=== PATIENT | female | born 1960 | race Caucasian/White ===

== ENCOUNTER → 2020-04-22 10:44 | Outpatient (CLI) | payer BC, SELFPAY ==
--- NOTE | ~2020-04-22 | DEXA_ITS ---
Bone Density Report Name: Mali Guerrero Age: 59 Sex: Female Ethnicity: White Date of : 1960 Indication: postmenopausal; screening for osteoporosis; hysterectomy; Referring Provider: Shaheen, Kristina Coleman Study: Bone densitometry was performed. Exam Date: April 22, 2020 Accession number: [id number] Bone Density: Region BMD T-score Z-score Classification AP Spine (L1-L4) 1.112 0.6 2.0 Normal Femoral Neck (Left) 0.634 -1.9 -0.6 Osteopenia Total Hip (Left) 0.781 -1.3 -0.3 Osteopenia Femoral Neck (Right) 0.605 -2.2 -0.9 Osteopenia Total Hip (Right) 0.773 -1.4 -0.4 Osteopenia Total Hip Mean 0.777 -1.4 -0.4 Osteopenia World Health Organization criteria for BMD impression classify patients as: Normal (T-score at or above -1.0), Osteopenia (T-score between -1.0 and -2.5), or Osteoporosis (T-score at or below -2.5). 10-year Fracture Risk(1): Major Osteoporotic Fracture 10% Hip Fracture 1.5% Reported Risk Factors: [place] (), Neck BMD=0.605, BMI=24.1 (1) FRAX(R) Version 3.08. Fracture probability calculated for an untreated patient. Fracture probability may be lower if the patient has received treatment. Clinical Information Provided by Patient: Has used the following medications: Calcium, calcium plus vit D, MTV Has the following medical conditions: Hysterectomy Patient maximum height was 66.75 Menopause Age: 39 No regular weight bearing exercise Drinks caffeinated beverages Onset of menses at age 15 Number of children 2 Impression: The patient has low bone mass, based on the Right Femoral Neck T-score. The patient has an estimated ten-year risk of hip fracture of 1.5% and an estimated ten-year risk of major fracture of 10%, based on the WHO FRAX algorithm. Discussion: BONE DENSITY IS LOW AT ONE OR MORE SKELETAL SITES. This patient's lowest T-score is low at one or more skeletal sites. It meets the World Health Organization's (WHO) criteria for ?low bone mass? (T-score between -1.0 and -2.5). The patient's 10-year risk of fracture as calculated by FRAX is less than the threshold where pharmacological therapy is recommended by the National Osteoporosis Foundation (NOF). However, all treatment decisions require clinical judgment and consideration of individual patient factors, including patient preferences, comorbidities, previous drug use, risk factors not captured in the FRAX model (e.g., frailty, falls, vitamin D deficiency, increased bone turnover, interval significant decline in bone density) and possible under or overestimation of fracture risk by FRAX. The patient should follow a healthful lifestyle (good nutrition with adequate calcium and vitamin D, and appropriate weight-bearing exercise). Follow-Up: Consider repeating this study in 2 to 3 years to reassess this patie
--- NOTE | ~2020-04-22 | MM_ITS ---
EXAMINATION: MM screening janeth BI w fabian HISTORY: Screening TECHNIQUE: Craniocaudal and mediolateral oblique 3-D tomosynthesis images were obtained and synthetic 2-D images were generated. CAD analysis was submitted and interpreted. COMPARISON: Comparison to multiple prior studies sequentially, with oldest reviewed study dated 10/2014. BREAST PARENCHYMAL COMPOSITION: The breasts are heterogeneously dense, which may obscure small masses . FINDINGS: There is no evidence of suspicious mass, calcification, or architectural distortion to sugg est malignancy in either breast. There has been no suspicious interval change. IMPRESSION: 1. No mammographic evidence of malignancy. 2. Recommend routine screening mammography in one year. BI-RADS Category 1: Negative Reviewed, dictated and finalized at location A. NTORY TRANSCRIBER
== END ==
PROVIDERS: Visit Provider Obstetrics & Gynecology
DX: Z12.31 Encounter for screening mammogram for malignant neoplasm of breast (principal); N95.1 Menopausal and female climacteric states; M85.852 Other specified disorders of bone density and structure, left thigh; M85.851 Other specified disorders of bone density and structure, right thigh
CPT/HCPCS: 77063; 77067; 77080

== ENCOUNTER → 2020-10-24 09:26 | Outpatient (CLI) | payer BC, SELFPAY ==
--- NOTE | ~2020-10-24 | US_ITS ---
EXAMINATION: US breast LT limited HISTORY: Pain in the upper outer quadrant of the left breast TECHNIQUE: Limited high-resolution ultrasound of the left breast is performed. FINDINGS: There is a 5 mm x 2 mm oval, circumscribed, parallel, hypoechoic mass with no posterior fea tures or internal vascularity at the 3:00 location 4 cm from the nipple in the area of the patient's left breast pain. IMPRESSION: Small mass in the upper outer quadrant of the left breast which could reflect complicated cyst. No de finite correlate identified for the patient's breast pain. Recommend continue clinical follow-up and targeted left breast ultrasound in six months. BI-RADS category 3, probably benign findings. Reviewed, dictated and finalized at location A. IMPRESSION: Small mass in the upper outer quadrant of the left breast which could reflect c omplicated cyst. No definite correlate identified for the patient's breast pain . Recommend continue clinical follow-up and targeted left breast ultrasound in six months. BI-RADS category 3, probably benign findings.
== END ==
PROVIDERS: PCP Nurse Practitioner Family; Visit Provider Obstetrics & Gynecology
DX: N64.4 Mastodynia (principal); R92.8 Other abnormal and inconclusive findings on diagnostic imaging of breast
CPT/HCPCS: 76642

== ENCOUNTER → 2021-05-06 09:53 | Outpatient (CLI) | payer BC, SELFPAY ==
--- NOTE | ~2021-05-06 | MMUS_ITS ---
EXAMINATION: MM diagnostic janeth BI w fabian, US breast LT limited HISTORY: Six-month follow-up for probably benign left breast mass TECHNIQUE: Craniocaudal, mediolateral, and mediolateral oblique 3-D tomosynthesis images of the tristen ts were performed and synthetic 2-D images were generated. CAD analysis was submitted and interpreted . High resolution limited left breast ultrasound was performed. COMPARISON: 10/24/2020, 04/22/2020, 03/03/2019, 02/27/2019 BREAST PARENCHYMAL COMPOSITION: There are scattered areas of fibroglandular density. FINDINGS: MAMMOGRAPHIC FINDINGS: There is no evidence of suspicious mass, calcification, or architectural distortion in either breast to suggest malignancy. There has been no suspicious interval change. ULTRASOUND: There is a stable 5 mm x 2 mm oval, circumscribed, parallel, hypoechoic mass with no posterior featur es or internal vascularity at the 3:00 location 4 cm from the nipple. IMPRESSION: 1. Stable, probably benign left breast mass and no mammographic evidence of malignancy. 2. Recommend 6 month follow-up targeted left breast ultrasound and screening mammography in one year. BI-RADS category 3, probably benign findings. Reviewed, dictated and finalized at location A. IMINER IMPRESSION: 1. Stable, probably benign left breast mass and no mammographic evidence of mal ignancy. 2. Recommend 6 month follow-up targeted left breast ultrasound and screening ma mmography in one year. BI-RADS category 3, probably benign findings.
== END ==
PROVIDERS: PCP Nurse Practitioner Family; Visit Provider Obstetrics & Gynecology
DX: N60.02 Solitary cyst of left breast (principal); R92.8 Other abnormal and inconclusive findings on diagnostic imaging of breast
CPT/HCPCS: 76642; 77062; 77066; G0279

== ENCOUNTER → 2021-11-11 09:56 | Outpatient (CLI) | payer BC, SELFPAY ==
--- NOTE | ~2021-11-11 | US_ITS ---
US breast LT limited 11/11/2021 10:28 Indication: Follow-up left breast mass Procedure: High-resolution Limited ultrasound of the left breast Comparison: 05/06/2021 Findings: At 3:00, 4 cm from the nipple, there is a stable 6 mm minimally complicated cyst. No suspic ious masses to suggest malignancy. Impression: 1: Stable benign-appearing minimally complicated left breast cysts at 3:00, 4 cm from the nipple. Routine yearly screening mammogram and regular clinical breast examination are recommended. BI-RADS CATEGORY 2 - BENIGN FINDINGS Reviewed, dictated and finalized at location A. Impression: 1: Stable benign-appearing minimally complicated left breast cysts at 3:00, 4 c m from the nipple. Routine yearly screening mammogram and regular clinical breast examination are recommended. BI-RADS CATEGORY 2 - BENIGN FINDINGS
== END ==
PROVIDERS: PCP Nurse Practitioner Family
DX: N60.02 Solitary cyst of left breast (principal)
CPT/HCPCS: 76642

== ENCOUNTER → 2022-06-26 13:57 | Outpatient (CLI) | payer BC, SELFPAY ==
--- NOTE | ~2022-06-26 | MM_ITS ---
EXAMINATION: MM screening janeth BI w fabian HISTORY: Screening mammogram TECHNIQUE: Craniocaudal and mediolateral oblique 3-D tomosynthesis images were obtained and synthetic 2-D images were generated. CAD analysis was submitted and interpreted. COMPARISON: 11/11/2021 Limited left breast ultrasound 05/06/2021 diagnostic bilateral mammogram and limited left breast ultrasound 10/24/2020 Limited left breast ultrasound 04/22/2020 bilateral screening mammogram 03/03/2019 diagnostic left mammogram 02/17/2019 bilateral screening mammogram BREAST PARENCHYMAL COMPOSITION: There are scattered areas of fibroglandular density. FINDINGS: Approximately 4 mm asymmetric opacity is noted posteriorly in the outer mid to upper left b reast. Diagnostic left mammogram and left breast ultrasound examination are recommended. Otherwise there is no evidence of suspicious mass, calcification, or architectural distortion to sugg est malignancy in either breast. There has been no other suspicious interval change. IMPRESSION: 1. 4 mm asymmetry in posterior mid to upper outer left breast 2. Diagnostic left mammogram and left breast ultrasound examination are recommended BI-RADS Category 0: Incomplete: Needs additional imaging evaluation. Reviewed, dictated and finalized at location A. IMPRESSION: 1. 4 mm asymmetry in posterior mid to upper outer left breast 2. Diagnostic left mammogram and left breast ultrasound examination are recomme nded BI-RADS Category 0: Incomplete: Needs additional imaging evaluation.
== END ==
PROVIDERS: PCP Obstetrics & Gynecology; Visit Provider Obstetrics & Gynecology
DX: Z12.31 Encounter for screening mammogram for malignant neoplasm of breast (principal); R92.8 Other abnormal and inconclusive findings on diagnostic imaging of breast
CPT/HCPCS: 77063; 77067

== ENCOUNTER → 2022-07-21 09:47 | Outpatient (CLI) | payer BC, SELFPAY ==
--- NOTE | ~2022-07-21 | MMUS_ITS ---
EXAMINATION: MM diagnostic janeth LT w fabian, US breast LT limited HISTORY: 4 mm asymmetry reported in posterior mid to upper outer left breast on 06/26/2022 screening m ammogram TECHNIQUE: Additional 3-D tomosynthesis images of the left breast were performed and synthetic 2-D im ages were generated. CAD analysis was submitted and interpreted. High resolution upper outer and lowe r-outer quadrant left breast ultrasound was performed. COMPARISON: None FINDINGS: MAMMOGRAPHIC FINDINGS: Mildly irregular approximately 2.9 x 5.7 mm mass is noted posteriorly in the mid to upper outer left breast. ULTRASOUND: 3:00 5 cm from nipple: Parallel hypoechoic lesion is noted in the left breast at 3:00 5 cm from the n ipple at approximately location and of similar configuration as the mammographic finding noted above. No suspicious shadowing or internal vascularity is noted. 5:00 1 cm from nipple: Parallel circumscribed oval hypoechoic 2.3 x 4 x 4.6 cm sonolucency consistent with small cyst IMPRESSION: 1. Probable benign findings 2. 6 month diagnostic left mammogram and left breast ultrasound follow-up are recommended BI-RADS category 3, probably benign findings. Reviewed, dictated and finalized at location A. IMPRESSION: 1. Probable benign findings 2. 6 month diagnostic left mammogram and left breast ultrasound follow-up are r ecommended BI-RADS category 3, probably benign findings.
== END ==
PROVIDERS: PCP Obstetrics & Gynecology; Visit Provider Obstetrics & Gynecology
DX: R92.8 Other abnormal and inconclusive findings on diagnostic imaging of breast (principal)
CPT/HCPCS: 76642; 77061; 77065; G0279

== ENCOUNTER → 2023-02-02 09:36 | Outpatient (CLI) | payer BC, SELFPAY ==
--- NOTE | ~2023-02-02 | MMUS_ITS ---
EXAMINATION: MM diagnostic janeth LT w fabian, US breast LT complete HISTORY: Six-month follow-up of probable benign findings reported on 07/21/2022 diagnostic left mammog [place] and limited left breast ultrasound TECHNIQUE: Additional 3-D tomosynthesis images of were performed and synthetic 2-D images were genera danny. CAD analysis was submitted and interpreted. High resolution complete left breast ultrasound exam ination including all 4 quadrants and subareolar area was performed. COMPARISON: July 21, 2022 diagnostic left mammogram and left breast ultrasound 06/26/2022 bilateral screening mammogram BREAST PARENCHYMAL COMPOSITION: There are scattered areas of fibroglandular density. FINDINGS: MAMMOGRAPHIC FINDINGS: No suspicious mass or architectural distortion, malignant calcification, skin thickening or retractio n or significant new or developing density is detected. ULTRASOUND: 5:00 1 cm from nipple: Parallel circumscribed hypoechoic 2.4 x 4.2 mm solid lesion without internal v ascularity or posterior shadowing, benign in appearance 6:00 1 cm from nipple: Circumscribed 2 mm sonolucency, likely a small cyst No suspicious mass or shadowing of the left breast or other significant finding is noted. IMPRESSION: 1. Benign; no mammographic evidence of malignancy 2. Routine annual mammographic screening is recommended BI-RADS Category 2: Benign finding(s). Reviewed, dictated and finalized at location A. IMPRESSION: 1. Benign; no mammographic evidence of malignancy 2. Routine annual mammographic screening is recommended BI-RADS Category 2: Benign finding(s).
== END ==
PROVIDERS: PCP Obstetrics & Gynecology; Visit Provider Obstetrics & Gynecology
DX: R92.8 Other abnormal and inconclusive findings on diagnostic imaging of breast (principal)
CPT/HCPCS: 76641; 77061; 77065; G0279

== ENCOUNTER 2024-01-01 09:41 | Emergency (ER) | payer BC, SELFPAY ==
--- NOTE | 2024-01-01 09:49 | ED.GENADULT ---
HPI - General Adult General Chief complaint: Urogenital-Female Stated complaint: uti symptoms Time Seen by Provider: 01/01/24 09:49 Source: patient Mode of arrival: ambulatory Limitations: no limitations History of Present Illness HPI narrative: 63-year-old female patient presents to the [facility] with complaints of urinary tract symptoms. Patient states symptoms started yesterday and her symptoms have been burning pain with urination, frequency, urgency, low back pain and strong odor to the urine. Patient denies fevers, body aches or chills. Denies any nausea, vomiting or diarrhea. Related Data Home Medications Medication Instructions Recorded Confirmed duloxetine 60 mg capsule,delayed 90 mg PO DAILY 01/01/24 01/01/24 release estradiol 10 mcg vaginal tablet See Rx Instructions .Route .COMPLEX 01/01/24 01/01/24 (Yuvafem) levothyroxine 112 mcg tablet 112 mcg PO DAILY 01/01/24 01/01/24 trazodone 100 mg tablet 100 mg PO PRN PRN Insomnia 01/01/24 01/01/24 vilazodone 40 mg tablet 40 mg PO DAILY 01/01/24 01/01/24 Allergies Allergy/AdvReac Type Severity Reaction Status Date / Time morphine AdvReac Intermediate Nausea and Verified 01/01/24 09:54 Vomiting Sulfa (Sulfonamide AdvReac Intermediate Weakness Verified 01/01/24 09:54 Antibiotics) Review of Systems Review of Systems: CONSTITUTIONAL: Denies fever, chills, or sweats. EYES: Denies visual changes, redness, or discharge. ENT: Denies rhinorrhea, congestion, sore throat, or otalgia. CARDIOVASCULAR: Denies chest pain, palpitations, or edema. RESPIRATORY: Denies cough or dyspnea. GASTROINTESTINAL: Denies abdominal pain, nausea, vomiting, or diarrhea. GENITOURINARY: Positive dysuria denies hematuria. SKIN: Denies rash or itching. MUSCULOSKELETAL: Denies back pain, joint pain, or myalgia. NEUROLOGIC: Denies headache, numbness, or weakness. PSYCHIATRIC: Denies anxiety or depression. [facility] Family History Family History Mother Family history of cataracts Sibling Malignant neoplasm of prostate Social History Social History Smoking status: Never smoker Alcohol intake: current Comments At the time of my signature I agree with nursing past medical history, surgical, social, and family history. There is no relevant family history pertinent to the presenting complaint. Exam Narrative: GENERAL: Well-appearing, well-nourished, and in no acute distress. HEAD: Normocephalic, atraumatic. EYES: PERRLA and EOMI. ENT: Nares clear, no rhinorrhea or epistaxis. Mucous membranes moist. NECK: Supple. No lymphadenopathy CHEST: Clear to auscultation. No respiratory distress. HEART: Regular rate and rhythm. No murmur heard. Normal peripheral pulses. ABDOMEN: Soft, nontender, nondistended, normal active bowel sounds. no CVA tenderness on percussion. EXTREMITIES: Normal range of motion. No edema. SKIN: Warm, dry, no rash. NEURO: No focal deficits. Alert and oriented x3. Course Course Level of Care: Express Care Visit Vital Signs Vital signs: Vital Signs Temperature 36.1 C L 01/01/24 09:51 Pulse Rate 85 01/01/24 09:51 Respiratory Rate 16 01/01/24 09:51 Blood Pressure 113/61 01/01/24 09:51 Pulse Oximetry 99 01/01/24 09:51 Oxygen Delivery Room Air 01/01/24 09:51 Temperature 36.1 C L 01/01/24 09:51 Pulse Rate 85 01/01/24 09:51 Respiratory Rate 16 01/01/24 09:51 Blood Pressure 113/61 01/01/24 09:51 Pulse Oximetry 99 01/01/24 09:51 Oxygen Delivery Room Air 01/01/24 09:51 Vital signs reviewed. Medical Decision Making MDM Narrative Medical decision making narrative: Discussed with patient that her urine dip does show signs of a urinary tract infection. Discussed with patient we will go ahead and treat her today with some oral antibiotics. Patient is requesting 7 days instead of 5 days becau
[2024-01-01 09:51] VITALS: BP 113/61; PULSE 85; RESP 16; TEMP 36.1; O2SAT 99
[2024-01-01 10:09] LABS: EDUAAPPEAR Clear; EDUABILI Negative (Negative); EDUABLOOD 1+ (Negative); EDUACOLOR1 Yellow; EDUAGLUCOSE Negative (Negative); EDUAKETONE Negative (Negative); EDUALEUKO 1+ (Negative); EDUANITRATE Positive (Negative); EDUAPROTEIN Negative (Negative); EDUAUROBILI 0.2
== END 2024-01-01 10:10 | disposition home or self-care (01) ==
PROVIDERS: Emergency Provider Nurse Practitioner Family; PCP Family Medicine
DX: N30.00 Acute cystitis without hematuria (principal); B96.20 Unspecified Escherichia coli [E. coli] as the cause of diseases classified elsewhere; M19.90 Unspecified osteoarthritis, unspecified site; E03.9 Hypothyroidism, unspecified; F41.9 Anxiety disorder, unspecified; F32.A Depression, unspecified; Z86.16 Personal history of COVID-19
CPT/HCPCS: 81003; 87077; 87086; 87088; 87186; 99213; G0463

== ENCOUNTER 2024-01-11 13:46 | Emergency (ER) | payer BC, SELFPAY ==
[2024-01-11 14:01] VITALS: BP 122/65; PULSE 78; RESP 16; TEMP 36.4; O2SAT 98
--- NOTE | 2024-01-11 14:16 | ED.FEMALEGU ---
HPI - Female Genitourinary General Chief complaint: Urogenital-Female Stated complaint: Bladder Infection Source: patient and RN notes reviewed Mode of arrival: ambulatory Limitations: no limitations History of Present Illness HPI Narrative: 63-year-old female presented for complaint of burning with urination, frequency and urgency along with mid abdominal pain and mid back pain for about 5 days. Patient was treated for UTI 2 weeks ago, stating she had 10 days worth of medicines. She felt better after 5 days so she stopped the antibiotic, then symptoms returned. she then completed the medicine and symptoms returned again. Denies hematuria, nausea, vomiting, constipation, fevers or chills. Related Data Home Medications Medication Instructions Recorded Confirmed duloxetine 60 mg capsule,delayed 90 mg PO DAILY 01/01/24 01/11/24 release estradiol 10 mcg vaginal tablet See Rx Instructions .Route .COMPLEX 01/01/24 01/11/24 (Yuvafem) levothyroxine 112 mcg tablet 112 mcg PO DAILY 01/01/24 01/11/24 trazodone 100 mg tablet 100 mg PO PRN PRN Insomnia 01/01/24 01/11/24 vilazodone 40 mg tablet 40 mg PO DAILY 01/01/24 01/11/24 Allergies Allergy/AdvReac Type Severity Reaction Status Date / Time morphine AdvReac Intermediate Nausea and Verified 01/01/24 09:54 Vomiting Sulfa (Sulfonamide AdvReac Intermediate Weakness Verified 01/01/24 09:54 Antibiotics) Review of Systems Review of Systems: CONSTITUTIONAL: Denies body aches, fever, chills, or sweats. CARDIOVASCULAR: Denies chest pain, palpitations, or edema. RESPIRATORY: Denies cough or dyspnea. GASTROINTESTINAL: Reports abdominal pain, Denies nausea, vomiting, or diarrhea. GENITOURINARY: Reports dysuria, frequency, urgency, denies hematuria, flank pain SKIN: Denies rash, itching, or wounds. MUSCULOSKELETAL: Reports back pain PMFSH Family History Family History Mother Family history of cataracts Sibling Malignant neoplasm of prostate Social History Social History Smoking status: Never smoker Alcohol intake: current Comments At time of signature, I have reviewed and agree with nursing past medical, surgical, social and family history unless otherwise noted. Please see nursing chart for further information. There is no relevant family history pertinent to the presenting complaint Exam Narrative: GENERAL: Well-appearing ENT: Mucous membranes pink and moist. CHEST: No respiratory distress. Clear to auscultation. HEART: Regular rate and rhythm. ABDOMEN: Soft, nontender, nondistended, normal active bowel sounds. No CVA tenderness SKIN: Warm, dry, no rash. NEURO: No focal deficits. Alert and oriented x3. Gait steady. PSYCH: Normal affect. Course Course Emergency Course: Patient is aware of diagnosis, understands and agrees to treatment plan. Anticipatory guidance given. Patient agrees to follow-up as directed and is aware of reasons to seek care at the emergency department. Portions of this record may have been created with voice recognition software Level of Care: Express Care Visit Vital Signs Vital signs: Vital Signs Temperature 97.6 F 01/11/24 14:01 Pulse Rate 78 01/11/24 14:01 Respiratory Rate 16 01/11/24 14:01 Blood Pressure 122/65 01/11/24 14:01 Pulse Oximetry 98 01/11/24 14:01 Oxygen Delivery Room Air 01/11/24 14:01 Temperature 97.6 F 01/11/24 14:01 Pulse Rate 78 01/11/24 14:01 Respiratory Rate 16 01/11/24 14:01 Blood Pressure 122/65 01/11/24 14:01 Pulse Oximetry 98 01/11/24 14:01 Oxygen Delivery Room Air 01/11/24 14:01 Reviewed MDM - Female Genitourinary MDM Narrative Medical decision making narrative: Discussed physical exam findings and urine results. Will change to Augmentin based on previous culture. Advised supportive measures and signs/symptoms to g
[2024-01-11 14:18] LABS: EDUAAPPEAR Cloudy; EDUABILI Negative (Negative); EDUABLOOD 2+ (Negative); EDUACOLOR1 Yellow; EDUAGLUCOSE Negative (Negative); EDUAKETONE Negative (Negative); EDUALEUKO 3+ (Negative); EDUANITRATE Negative (Negative); EDUAPROTEIN Negative (Negative); EDUAUROBILI 0.2
== END 2024-01-11 14:32 | disposition home or self-care (01) ==
PROVIDERS: Emergency Provider Nurse Practitioner Family; PCP Family Medicine
DX: N39.0 Urinary tract infection, site not specified (principal)
CPT/HCPCS: 81003; 87086; 87088; 99213; G0463

== ENCOUNTER 2024-01-24 09:19 | Emergency (ER) | payer BC, SELFPAY ==
[2024-01-24 09:33] VITALS: BP 118/55; PULSE 82; RESP 16; TEMP 36.2; O2SAT 98
[2024-01-24 09:53] LABS: EDUAAPPEAR Cloudy; EDUABILI Negative (Negative); EDUABLOOD 2+ (Negative); EDUACOLOR1 Yellow; EDUAGLUCOSE Negative (Negative); EDUAKETONE Negative (Negative); EDUALEUKO 2+ (Negative); EDUANITRATE Negative (Negative); EDUAPH 5.5; EDUAPROTEIN Negative (Negative); EDUASPGRAVITY 1.015; EDUAUROBILI 0.2
--- NOTE | 2024-01-24 10:21 | ED.ABDPAIN ---
HPI - Abdominal Pain General Chief Complaint: Urogenital-Female Stated Complaint: Bladder Infection Time Seen by Provider: 01/24/24 10:21 Source: patient, RN notes reviewed and old records reviewed Mode of arrival: ambulatory Limitations: no limitations History of Present Illness HPI narrative: Patient presents with complaints of urinary frequency, dysuria, low back pain. She reports that she has been getting very frequent UTIs. States that she has recently been on Augmentin and Macrobid, symptoms returned a couple of days after finishing medication. She does report that she has not followed up with her primary care provider. She is encouraged once again to do so. She denies any fever, chills, sweats. Denies any rafal hematuria. denies any injury or trauma Related Data Home Medications Medication Instructions Recorded Confirmed duloxetine 60 mg capsule,delayed 90 mg PO DAILY 01/01/24 01/24/24 release estradiol 10 mcg vaginal tablet See Rx Instructions .Route .COMPLEX 01/01/24 01/24/24 (Yuvafem) levothyroxine 112 mcg tablet 112 mcg PO DAILY 01/01/24 01/24/24 trazodone 100 mg tablet 100 mg PO PRN PRN Insomnia 01/01/24 01/24/24 vilazodone 40 mg tablet 40 mg PO DAILY 01/01/24 01/24/24 Allergies Allergy/AdvReac Type Severity Reaction Status Date / Time morphine AdvReac Intermediate Nausea and Verified 01/24/24 09:49 Vomiting Sulfa (Sulfonamide AdvReac Intermediate Weakness Verified 01/24/24 09:49 Antibiotics) Review of Systems Review of Systems: All systems reviewed & are unremarkable except as noted in HPI and below Constitutional: Constitutional: Reports as per HPI, Reports no additional constitutional complaints and Denies fever(s) ENT: Reports system reviewed and no additional complaints, except as documented Cardiovascular: Cardiovascular: Reports no additional cardiovascular complaints Respiratory: Respiratory: Reports no additional respiratory complaints Gastrointestinal: Gastrointestinal: Reports no additional gastrointestinal complaints Genitourinary: Genitourinary: Reports as per HPI, Reports dysuria, Reports flank pain, Reports urinary hesitancy and Reports urinary urgency PMFSH Family History Family History Mother Family history of cataracts Sibling Malignant neoplasm of prostate Social History Social History (Reviewed 01/24/24 @ 10:35 by DAISY Matthew Smoking status: Never smoker Alcohol intake: current Comments At the time of my signature, I reviewed and agree with the nursing past medical, surgical, social, and family history. There is no relevant family history pertinent to the patient complaint. Exam Const: General: cooperative, no acute distress, alert and awake Orientation/consciousness: oriented to person, oriented to place and oriented to time HENMT: Head: normal to inspection Mouth: Yes moist mucous membranes Resp: Effort & Inspection: normal respiratory effort and able to speak in complete sentences Auscultation: clear to auscultation bilaterally, no crackles, no rales, no rhonchi and no wheezes Cardio: Palpation: normal PMI Rate: regular rate Rhythm: regular rhythm Heart sounds: S1 normal heart sound present and S2 normal heart sound present : General: Yes bladder normal to palpation and Yes no CVA tenderness Neuro: General: oriented to person, oriented to place and oriented to time Cranial nerves: Yes CN's II-XII intact bilaterally Psych: Appearance: grossly normal Thought process: Normal thought process present Insight: Good insight present (Psych) Judgement: Good judgement present (Psych) Course Course Level of Care: Express Care Visit Vital Signs Vital signs: Vital Signs Temperature 97.2 F L 01/24/24 09:33 Pulse Rate 82 01/24/24 09:33 Respiratory Rate 16 01/24/24 09:33 Blood Pressure 118/55 L 01/24/24 09:33 Pulse Oximetry 98 01/24/24 09:33 Oxygen Deliv
== END 2024-01-24 10:40 | disposition home or self-care (01) ==
PROVIDERS: Emergency Provider Nurse Practitioner Family; PCP Family Medicine
DX: N39.0 Urinary tract infection, site not specified (principal); B96.20 Unspecified Escherichia coli [E. coli] as the cause of diseases classified elsewhere; M19.90 Unspecified osteoarthritis, unspecified site; E03.9 Hypothyroidism, unspecified; F41.9 Anxiety disorder, unspecified; F32.A Depression, unspecified; Z86.16 Personal history of COVID-19
CPT/HCPCS: 81003; 87077; 87086; 87186; 99213; G0463

== ENCOUNTER 2024-10-20 14:12 | Outpatient (CLI) | payer MEDICARE, BC, SELFPAY ==
--- NOTE | ~2024-10-20 | DEXA_ITS ---
Bone Density Report Name: JAYE RUBIO Age: 64 Sex: Female Ethnicity: White Date of : 1960 Indication: osteopenia; height loss; hysterectomy; Referring Provider: ROBERTO, RAFA Coleman Study: Bone densitometry was performed. Exam Date: October 20, 2024 Accession number: [id number] Bone Density: Region BMD T-score Z-score Classification AP Spine(L1-L4) 1.158 1.0 2.8 Normal Femoral Neck (Left) 0.586 -2.4 -0.9 Osteopenia Total Hip (Left) 0.788 -1.3 0.0 Osteopenia Femoral Neck (Right) 0.585 -2.4 -0.9 Osteopenia Total Hip (Right) 0.742 -1.6 -0.4 Osteopenia Total Hip Mean 0.765 -1.5 -0.2 Osteopenia World Health Organization criteria for BMD impression classify patients as: Normal (T-score at or above -1.0), Osteopenia (T-score between -1.0 and -2.5), or Osteoporosis (T-score at or below -2.5). 10-year Fracture Risk(1): Major Osteoporotic Fracture 12% Hip Fracture 2.3% Reported Risk Factors: [place] (), Neck BMD=0.586, BMI=24.1 (1) FRAX(R) Version 3.08. Fracture probability calculated for an untreated patient. Fracture probability may be lower if the patient has received treatment. Previous Exams: Region Exam Age BMD T-score BMD Change BMD Change Date g/cm2 vs Baseline vs Previous AP Spine (L1-L4) 10/20/2024 64 1.158 1.0 0.047 (4.2%)* 0.047 (4.2%)* 04/22/2020 59 1.112 0.6 Total Hip(Left) 10/20/2024 64 0.788 -1.3 0.007 (0.8%) 0.007 (0.8%) 04/22/2020 59 0.781 -1.3 Total Hip(Right) 10/20/2024 64 0.742 -1.6 -0.032 (-4.1%) -0.032 (-4.1%) 04/22/2020 59 0.773 -1.4 *Denotes significance at 95% confidence level, LSC for AP Spine = 0.022 g/cm2, LSC for Total Hip = 0.027 g/cm2 Clinical Information Provided by Patient: Has used the following medications: Calcium Has the following medical conditions: Hysterectomy Patient maximum height was 67 Menopause Age: 39 Drinks caffeinated beverages Onset of menses at age 13 Number of children 2 Impression: The patient has low bone mass, based on the Left Femoral Neck T-score. The patient has an estimated ten-year risk of hip fracture of 2.3% and an estimated ten-year risk of major fracture of 12%, based on the WHO FRAX algorithm. The BMD for the Total Hip(Right) decreased, changing by -4.1% since the last DXA exam. Discussion: BONE DENSITY IS LOW AT ONE OR MORE SKELETAL SITES. This patient's lowest T-score is low at one or more skeletal sites. It meets the World Health Organization's (WHO) criteria for ?low bone mass? (T-score between -1.0 and -2.5). The patient's 10-year risk of fracture as calculated by FRAX is less than the threshold where pharmacological therapy is recommended by the National Osteoporosis Foundation (NOF). However, all treatment decisions require clinical judgment and consideration of individual patient factors, including patient preferences, comorbidities, previous drug use, risk factors not captured in the FRAX model (e.g., frailty, falls, vitamin D deficiency, increased bone turnover, interval significant decline in bone density) and possible under or overestimation of fracture risk by FRAX. The patient should follow a healthful lifestyle (good nutrition with adequate calcium and vitamin D, and appropriate weight-bearing exercise). Follow-Up: Consider repeating this study in 2 years to reassess this patient's status, or sooner if there is some new clinical indication. Reported by: MELISA on 10/20/2024 2:54:00 PM. Reviewed, dictated and finalized at location A.
--- OUTSIDE RECORDS SUMMARY | 2024-10-20 14:17 | XMS_ITS | Encounter Summary ---
Author Organization [facility] Address [facility] [place] [place] [address] Care Team Providers Care Value Engineer Name Role Phone Marianne Rios MD Primary Care Provider [phone] [facility] [place] Primary Care Provider + None, Provider Primary Care Provider Danielle Blas MD Primary Care Provider [phone] Encounter Details Date Type Department Care Team (Late st Contact Info) Description 05/18/2017 Hosp Visit [facility] Outpatient Therapy [place] [id number] Juani Kerns, PT [place], [place] [id number] Social History Tobacco Use Types Packs/Day Years Used Date Smoking Tobacco: Never Assessed Comments Unknown Sex and Gender Information Value Date Recorded Sex Assigned at Female 09/19/2024 3:14 PM CDT Legal Sex Female 6:08 PM CDT Gender Identity Female 09/19/2024 3:14 PM CDT Sexual Orientation Not on file documented as of this encounter Progress Notes * Juani Kerns, PT - 05/18/2017 11:29 AM CST Mali Guerrero 1960 Patient called and cancelled today's appointment secondary to feeling very sore after MD internal exam. Juani Kerns PT, WCS 05/18/17 11:29 AM LE GRINDER FEEDER documented in this encounter Plan of Treatment Upcoming Encounters Date Type Department Care Team (Late st Contact Info) Description 11/20/2024 10:00 AM CDT Office Visit [facility] Family & Internal Medicine [facility] [address] [place] [phone] [place] [address] [facility]. [address] [place] [id number] documented as of this encounter Visit Diagnoses Not on filedocumented in this encounter Additional Health Concerns Infection Onset Date Last Indicated Resolved Time COVID-19 Rule Out 05/08/2022 05/08/2022 05/08/2022 9:53 AM CHICLE GRINDER FEEDER documented as of this encounter Care Teams Value Engineer Relationship Specialty Start Date End Date Marianne Rios MD [address], [place] [id number] PCP - General 06/19/10 04/17/21 Alyssa Loyola, [facility] [place] [address] [place] [address] PCP - General NURSE PRACTITIONER 04/18/21 05/25/22 None, MD Wild PCP - General UNKNOWN PHYSICIAN SPECIALTY 05/26/22 07/02/22 [place] [address] [facility] [address] [place] [id number] PCP - General FAMILY PRACTICE 07/03/22 documented as of this encounter
--- OUTSIDE RECORDS SUMMARY | 2024-10-20 14:17 | XMS_ITS | Encounter Summary ---
Author Organization [facility] [employer] [facility] Address [address] [place] [address] Phone Care Team Providers Care Personal Lines Advisor Name Role Phone Unknown, Vladimirnfelvia Primary Care Provider Unavail able Alyssa Loyola LONG DISTANCE OPERATOR Primary Care Provider + Unknown, Notinfile Primary Care Provider Unavail able Alyssa Loyola LONG DISTANCE OPERATOR Primary Care Provider + Unknown, Vladimirnfile Primary Care Provider Unavail able Alyssa Loyola LONG DISTANCE OPERATOR Primary Care Provider + Neha Frank DPT Unavailab le Jesse Black MD Unavailable [phone] Encounter Details Date Type Department Care Team (Latest Contact Info) Description 04/21/2017 Orders Only [facility] CONVERSION Scanning, Provider Social History Tobacco Use Types Packs/Day Years Used Date Smoking Tobacco: Never Comments Unknown Sex and Gender Information Value Date Recorded Sex Assigned at Not on file Legal Sex Female 7:36 AM ACCOUNTING MACHINE OPERATOR Gender Identity Not on file Sexual Orientation Not on file documented as of this encounter Plan of Treatment Not on file documented as of this encounter Procedures Procedure Name Priority Date/Time Associated Diagnosis Comments OBSTETRIC/GYNECOLOGY ULTRASONOGRAPHY REPORT 04/21/2017 12:53 PM ACCOUNTING MACHINE OPERATOR documented in this encounter Results * OBSTETRIC/GYNECOLOGY ULTRASONOGRAPHY REPORT (04/21/2017 12:53 PM ACCOUNTING MACHINE OPERATOR) Anatomical Region Laterality Modality Ultrasound us Provider Scanning IMG OB US PROCEDURES Final Res ult documented in this encounter Visit Diagnoses Not on filedocumented in this encounter Care Teams Personal Lines Advisor Relationship Specialty Start Date End Date Unknown, Notinfile PCP - General 04/21/17 05/07/17 Alyssa Loyola NP PCP - General 05/08/17 08/15/17 Unknown, Notinfile PCP - General 08/16/17 08/16/17 Alyssa Loyola NP PCP - General 08/17/17 08/18/17 Unknown, Notinfile PCP - General 08/19/17 09/12/17 Alyssa Loyola NP PCP - General Nurse Practitioner 09/13/17 Neha Frank DPT Physical Therapist Physical Therapy 09/13/17 Jesse Black MD [address] [place] [address] Consulting Physician Obstetrics and Gynecology 09/23/17 documented as of this encounter
--- OUTSIDE RECORDS SUMMARY | 2024-10-20 14:17 | XMS_ITS | Clinical Summary ---
Author Organization [facility] Address [address] [place] [address] Care Team Providers Care Reconstructive Dentist Name Role Phone Danielle Mtz MD Primary Care Provider [phone] Allergies Active Allergy Reactions Criticality Noted Date Comments Sulfa Antibiotics Rash Low 10/15/2015 HOT FLASHES AND WEAK LEG AND TURNED RED Medications vilazodone 40 MG tablet Take 1 tablet (40 mg total) by mouth daily. Active estradiol (ESTRACE) 0.5 MG tablet estradiol 0.5 mg tablet Active DULoxetine (CYMBALTA) 30 MG capsule Take 1 capsule (30 mg total) by mouth daily. Active DULoxetine (CYMBALTA) 60 MG capsule Take 1 capsule (60 mg total) by mouth daily. Active traZODone (DESYREL) 100 MG tablet TAKE 1 TABLET BY MOUTH IN THE EVENING NEEDED FOR INSOMNIA Active valACYclovir (VALTREX) 500 MG tabletIndications :HSV (herpes simplex virus) anogenital infection Take 1 tablet (500 mg total) by mouth 2 (two) times daily. for 5 days 30 tablet 08/09/19 24 Active vitamin D3 (CHOLECALCIFEROL) 1.25 mg capsuleIndication s:Vitamin D deficiency Take 1 capsule (50,000 Units total) by mouth once a week. 8 capsule 06/27/19 25 Active methenamine (HIPREX) 1 g tablet Take 1 tablet (1 g total) by mouth 2 (two) times daily with meals. 05/31/19 25 Active YUVAFEM 10 MCG vaginal tablet INSERT 1 TABLET VAGINALLY THREE TIMES A WEEK 07/27/19 25 Active levothyroxine (SYNTHROID) 112 MCG tabletIndications :Acquired hypothyroidism TAKE 1 TABLET BY MOUTH IN THE MORNING 90 tablet 09/28/19 25 Active atorvastatin (LIPITOR) 20 MG tabletIndications :Mixed hyperlipidemia TAKE 1 TABLET BY MOUTH NIGHTLY AT BEDTIME 30 tablet 10/17/19 25 Active atorvastatin (LIPITOR) 20 MG tabletIndications :Mixed hyperlipidemia Take 1 tablet (20 mg total) by mouth nightly at bedtime. 30 tablet 3 06/27/19 25 025 Discontinued levothyroxine (SYNTHROID) 112 MCG tabletIndications :Acquired hypothyroidism TAKE 1 TABLET BY MOUTH IN THE MORNING 90 tablet 06/28/19 25 025 Discontinued azithromycin (ZITHROMAX Z-NASH) 250 MG tabletIndications :Acute upper respiratory infection, unspecified Take 2 tablets by mouth on day one then 1 daily for four days. 6 tablet 09/20/19 25 025 predniSONE (DELTASONE) 20 MG tabletIndications :Acute upper respiratory infection, unspecified Take 1 tablet (20 mg total) by mouth daily for 5 days. With meal 5 tablet 09/20/19 25 025 Active Problems Patient Care Coordination No te Formatting of this note migh t be different from the original. PHYSICAL THERAPY PRECAUTIONS: implanted device (brain stimulator) Problem Noted Date Diagnosed Date Mild sleep apnea 08/09/2023 Age-related osteoporosis wit hout current pathological fracture 08/09/2023 Spinal stenosis of lumbar re gion without neurogenic claudication 07/19/2022 Acquired hypothyroidism 07/19/2022 Chronic anemia 07/19/2022 Irritable bowel syndrome with constipation 07/06 Encounters Date Type Department Care Team Description 09/19/2024 3:20 PM CDT Office Visit [facility] Family & Internal Medicine - [place] [id number] [place] [phone] Amisha Corbin MD Sore Throat (Acute x 1 month sore throat and persistent cough dry no other s/s also has had totally 2 or 3 months but cough ain't went away) 09/19/2024 Travel from Last 3 Months Immunizations Immunization Administration Dates Next Due FLUAD (IIV, Trivalent, 0.5 M L Pre-filled Syringe) 12/21/2016 Influenza (Generic) 01/28/2024, 7,01/02/2016,2014,01/10/2014,01/04/2013 Influenza Adult (Generic) 02/01/2023,11/2021,02/14/2021,2019,01/04/2019,01/23/2018,12/13/2017,0 01/05/2016 PFIZER COVID-19 (ORIGINAL FORMULATION, PURPLE CAP) mRNA, LNP-S, PF, 30 MCG/0.3 ML DOSE 02/27/2021,07/08/2020,06/17/2020 Shingrix 03/12/2022,11/13/2021 Tdap (Generic) 01/27/2018,01/23/2018,04/12/2010 Family History Medical History Relation Comments Asthma Daughter Diabetes Mother Relation Status Comments Daughter Alive Father Alive Mother Alive Social History Tobacco Use Types Packs/Day Years Used Date Smoking Tobacco: Never Smokeless Tobacco: Never Tobacco Cessation:Counseling Given: No Alcohol Use Standard Drinks/Week Comments Never 0 (1 standard drink = 0.6 oz pur e alcohol) PHQ-2 Answer Date Recorded Patient Health Questionnaire-2 Score 0 09/19/2024 Comments No Sex and Gender Information Value Date Recorded Sex Assigned at Female 09/19/2024 3:14 PM CDT Legal Sex Female 6:08 PM CDT Gender Identity Female 09/19/2024 3:14 PM CDT Sexual Orientation Not on file Last Filed Vital Signs Vital Sign Reading Time Taken Comments Blood Pressure 124/72 09/19/2024 3:13 PM CDT Pulse 80 09/19/2024 3:13 PM CDT Temperature 36.1 C (97 F) 09/19/2024 3:13 PM CDT Respiratory Rate 18 09/19/2024 3:13 PM CDT Oxygen Saturation 98% 09/19/2024 3:13 PM CDT Inhaled Oxygen Concentration - - Weight 72 kg (158 lb 12.8 oz) 09/19/2024 3:13 PM CDT Height 167.6 cm (5' 6) 09/19/2024 3:13 PM CDT Body Mass Index 25.63 09/19/2024 3:13 PM CDT Plan of Treatment Upcoming Encounters Date Type Department Care Team (Late st Contact Info) Description 11/20/2024 10:00 AM CDT Office Visit [facility] Family & Internal Medicine [facility] [address] [place] [address] [place] [address] [facility]. [address] [place] [address] Health Maintenance Due Date Last Done Comments Colorectal Cancer Screening Colonoscopy (10 Years) 1960 Hepatitis C 09/11/1977 Pneumococcal Vaccine: 50+ Years (1 of 2 - PCV) 09/11/1978 RSV Immunization or 60+ Years (1 - Risk 60-74 years 1-dose series) 2019 COVID-19 Vaccine (4 - 2023-2 5 season) 2023 02/27/2021, 07/08/2020, 06/17/2020 Dexa Scan (General) 09/11/2024 DTaP, Tdap and Td Vaccines ( 4 - Td or Tdap) 01/28/2028 01/27/2018, 01/23/2018, 04/12/2010 Mammogram Screening 09/07/2028 Postpone d from 1999 (Awaiting Documentation) Zoster Vaccines Completed 03/12/2022, 11/13/2021 PHQ-2 (Physician [place]) Completed 09/19/2024 Meningococcal B Vaccine Aged Out No l onger eligible based on patient's age to complete this topic Meningococcal Vaccine Aged Out No rey lizz eligible based on patient's age to complete this topic RSV Immunizations Under 20 Months Aged Out No longer eligible b ased on patient's age to complete this topic Insurance [facility] MEDICARE Care Teams Reconstructive Dentist Relationship Specialty [place] [address] [place] [address] PCP - General FAMILY PRACTICE 07/03/22
--- OUTSIDE RECORDS SUMMARY | 2024-10-20 14:17 | XMS_ITS | Encounter Summary ---
Author Organization [facility] Address [address] [place] [address] Care Team Providers Care Retail Receiving Clerk Name Role Phone Marianne Rios MD Primary Care Provider [phone] Alyssa Loyola [facility] Primary Care Provider + None, Provider Primary Care Provider Danielle Blas MD Primary Care Provider [phone] Encounter Details Date Type Department Care Team (Late st Contact Info) Description 06/18/2017 Hosp Visit [facility] Outpatient Therapy [place], [place] [id number] Juani Kerns, [place] [address] Social History Tobacco Use Types Packs/Day Years Used Date Smoking Tobacco: Never Assessed Comments Unknown Sex and Gender Information Value Date Recorded Sex Assigned at Female 09/19/2024 3:14 PM CDT Legal Sex Female 6:08 PM CDT Gender Identity Female 09/19/2024 3:14 PM CDT Sexual Orientation Not on file documented as of this encounter Progress Notes * Juani Kerns, PT - 06/18/2017 8:37 AM CST aMli Guerrero 1960 Patient called and cancelled today's appointment secondary to saw MD re lesion; awaiting culture results however MD suspects Herpes. Patient still feeling ill with achiness and malaise. Juani Kerns, PT, WCS 06/18/17 8:37 AM ITY HEAD documented in this encounter Plan of Treatment Upcoming Encounters Date Type Department Care Team (Late st Contact Info) Description 11/20/2024 10:00 AM CDT Office Visit [facility] Family & Internal Medicine - [place] [address] [place] [address] [place] [address] [facility]. [address] [place] [phone] documented as of this encounter Visit Diagnoses Not on filedocumented in this encounter Additional Health Concerns Infection Onset Date Last Indicated Resolved Time COVID-19 Rule Out 05/08/2022 05/08/2022 05/08/2022 9:53 AM QUALITY HEAD documented as of this encounter Care Teams Retail Receiving Clerk Relationship Specialty Start Date End Date Marianne Rios MD [address], [place] [address] PCP - General 06/19/10 04/17/21 Alyssa Loyola, [facility] [address] [place] [phone] PCP - General NURSE PRACTITIONER 04/18/21 05/25/22 None, Provider, PCP - General UNKNOWN PHYSICIAN SPECIALTY 05/26/22 07/02/22 [place] [address] [place], [place] [id number] PCP - General FAMILY PRACTICE 07/03/22 documented as of this encounter
--- OUTSIDE RECORDS SUMMARY | 2024-10-20 14:17 | XMS_ITS | Referral Summary ---
Author Organization [facility] Address [address] [place] [address] Care Team Providers Care Earring Maker Name Role Phone Nir Alyssa Judith TOBACCO STRIPPER HAND Primary Care Provider + Neha Frank DPT Unavailab le Jesse Black MD Unavailable [phone] Allergies Active Allergy Reactions Criticality Noted Date Comments Other Other (See comments) Low 10/24/2010 OTHER Sulfa (Sulfonamide Antibiotics) Rash Medium 10/15/2015 HOT FLASHES AND WEAK LEG AND TURNED RED Medications DULoxetine DR (CYMBALTA) 60 mg capsule daily. Active levothyroxine (SYNTHROID, LEVOTHROID) 112 mcg tablet 08/16/2017 Active traZODone (DESYREL) 100 mg tablet TAKE 1 TABLET AT BEDTIME. Active vilazodone (VIIBRYD) 40 mg tabletIndication s:major depressive disorder take 1 tablet daily Active clonazePAM (KlonoPIN) 0.5 mg tablet 1 12/23/2017 Active estradiol (VAGIFEM) 10 mcg tablet Insert 1 tablet (10 mcg total) into the vagina 2 (two) times a week 8 tablet 12/22/[address] (CYMBALTA) 30 mg capsule 05/01/2020 Active omega 3-can-edc-fish oil 1,000 mg (250 mg-750 mg)/5 mL liquid 1 tablet 10/07/2014 Act rashad vitamin O18-cghrg acid 0.5-1 mg tablet 1 tablet 10/07/2014 Act rashad cholecalciferol (VITAMIN D-3) 400 unit capsule 1 tablet 10/07/2014 Ac tive buPROPion XL (WELLBUTRIN XL) 150 mg 24 hr tablet Take 150 mg by mouth every morning 03/12/2021 Active ketorolac (TORADOL) 10 mg tablet TAKE 1 TABLET TWICE A DAY BY MOUTH NEEDED. 03/27/2021 Active methocarbamoL (ROBAXIN) 750 mg tablet Take by mouth 3 (three) times a day as needed 03/27/2021 Active tolterodine LA (DETROL LA) 4 mg 24 hr capsule 1 capsule 01/29/2018 Activ e clonazePAM (KlonoPIN) 1 mg tablet 1 BY MOUTH EVERY DAY NEEDED ANXIETY ORAL 04/09/2021 Active multivitamin-Ca- iron-minerals tablet 10/07/2014 Active doxycycline 100 mg tablet Take 100 mg by mouth 2 (two) times a day 06/14/2021 Active HYDROcodone-acet aminophen (NORCO) 5-325 mg per tablet 04/23/2021 Active promethazine-DM (PROMETHAZINE-DM ) 1.25-3 mg/mL syrup 5 mL 10/30/2021 Active nirmatrelvir 300 mg-ritonavir 100 mg (Paxlovid, EUA,) tablets,dose pack tablets in a dose pack (EUA) 2 tablets 10/30/2021 Active dicyclomine (BENTYL) 20 mg tablet Take 20 mg by mouth 4 (four) times a day as needed 10/25/2021 Active methenamine (HIPREX) 1 gram tabletIndication s:UTI prophylaxis Take 1 tablet (1 g total) by mouth 2 (two) times a day with meals 60 tablet 3 03/13/2024 Active Active Problems Problem Noted Date Diagnosed Date Neck pain of over 3 months duration 06/19/2021 Low back pain, non-specific 06/19/2021 Pelvic floor dysfunction in female 05/06/2020 Assessment & Plan (11/05/2021 4:54 PM CDT): -On examination, we elicited Moderate pain to palpation of the pelvic floor muscles. -We discussed the role that her pelvic floor muscle dysfunction is likely playing in her urinary symptoms, pelvic floor symptoms and bowel symptoms. -Management options for levator ani/obturator pain/spasm were discussed including pelvic floor physical therapy and vaginal icing. -A prescription for PFPT was given as well as vaginal icing supplies. She will have at least a couple visits with [facility] and then possibly transfer PFPT closer to home. Recurrent urinary tract infection 09/13/2017 Assessment & Plan (11/05/2021 5:15 PM CDT): -She was instructed to call our office with signs or symptoms of an UTI. A urine specimen will be sent to assess for an UTI. Empiric treatment will be started if indicated based on symptoms. -She will continue the following UTI prevention strategies including use of vaginal estrogen, D-mannose, voiding after intercourse, scheduled voiding every 2-3 hours. -She will resume Ellura for UTI prevention. -cathed urine sent today for UTI symptoms, she will start the Macrobid BID she has at home pending final culture. Red flag symptoms reviewed and advised patient to proceed to ED should these occur Vaginal atrophy 09/13/2017 Assessment & Plan (11/05/2021 5:14 PM CDT): -continue twice weekly VET (prescribed by local PALEOLOGY PROFESSOR) Bilateral hip pain 04/21/2017 Arthralgia of hip 04/21/2017 Bilateral myofascial pain 04/21/2017 Myofascial pain 04/21/2017 Female pelvic pain 04/21/2017 Pain in female pelvis 04/21/2017 Microscopic hematuria 04/21/2017 Anxiety disorder 05/17/2012 Recurrent major depressive disorder 07/21/2011 Resolved Problems Problem Noted Date Diagnosed Date Resolved Date Pelvic mass in female 04/21/20172020 Immunizations Immunization Administration Dates Next Due Influenza Virus Vaccine Trivalent Mdv 12/21/2016 Influenza, Quadrivalent, Spl it, Intramuscular 12/29/2019,01/04/2019,12/13/2017,01/04 Influenza, Quadrivalent, Spl it, Preservative Free, Intramuscular 12/29/2019,01/04/2019,01/24/2018,01/23 Influenza, Trivalent, Adjuva nted, Intramuscular 12/21/2016 Influenza, Trivalent, Cell Culture-based MDCK, Preservative Free, Antibiotic Free, Intramuscular 02/14/2021 Influenza, Trivalent, IM (MDV) 01/25/2015,2013,01/04/2013 Influenza, Trivalent, Preser vative Free, Intramuscular 01/02/2016 Pfizer SARS-CoV-2 Monovalent Vaccination (12+ Yrs) PURPLE 02/27/2021,07/08/2020,06/17/2020 Tdap 01/27/2018, 8,01/23/2018,04/12 Social History Tobacco Use Types Packs/Day Years Used Date Smoking Tobacco: Never Smokeless Tobacco: Never Tobacco Cessation:Counseling Given: Not Answered Alcohol Use Standard Drinks/Week Comments No 0 (1 standard drink = 0.6 oz pur e alcohol) AUDIT-C Answer Date Recorded Q1: How often do you have a drink containing alc ohol? Never 06/19/2021 Average Number of Drinks Not on file 022 Q3: How often do you have si x or more drinks on one occasion? Never 06/19/2021 Comments No Sex and Gender Information Value Date Recorded Sex Assigned at Not on file Legal Sex Female 7:36 AM PATTERN MECHANIC Gender Identity Not on file Sexual Orientation Not on file Occupation Industry Job Start Date Job End Date Retired Not on file Not on file Not on file Last Filed Vital Signs Vital Sign Reading Time Taken Comments Blood Pressure 112/67 03/13/2024 8:42 AM PATTERN MECHANIC Pulse 97 06/19/2021 11:19 AM PATTERN MECHANIC Temperature 36.5 C (97.7 F) 06/19/2020 12:50 PM PATTERN MECHANIC Respiratory Rate - - Oxygen Saturation 99% 01/18/2017 1:46 PM CDT Inhaled Oxygen Concentration - - Weight 71.2 kg (157 lb) 03/13/2024 8:42 AM PATTERN MECHANIC Height 167.6 cm (5' 6) 03/13/2024 8:42 AM PATTERN MECHANIC Body Mass Index 25.34 03/13/2024 8:42 AM PATTERN MECHANIC Plan of Treatment Not on file Procedures Procedure Name Priority Date/Time Associated Diagnosis Comments CT VIRTUAL COLONOSCOPY DIAGNOSTIC WO CONTRAST Schedule Routine, Read Routine (OP Routine) 10/09/2019 10:06 AM CDT Redundant colon from Last 3 Months or Most Recently Relevant to Health Maintenance Results * CT Colonoscopy Diagnostic WO Contrast (10/09/2019 10:06 AM CDT) Anatomical Region Laterality Modality Body N/A Computed Tomogra phy 10/09/2019 10:3 1 AM CDT Impressions 10/09/2019 10:31 AM CDT C1: Normal colon or benign lesion, continue routine screening. E1: Normal exam or anatomic variant Electronically signed by: Ezequiel Rogers M.D. Narrative 10/09/2019 10:31 AM CDT EXAMINATION: CT colonography without intravenous contrast HISTORY: 59-year-old female with redundant colon presents for colon screening TECHNIQUE: Transaxial computed tomographic images through the abdomen and pelvis were obtained without intravenous contrast after insufflation of the colon with CO2 through a rectal catheter. Images were obtained in the supine and right lateral decubitus positions. COMPARISON: None FINDINGS: The following findings are reported according to the CT Colonography Reporting and Data System (C-RADS) from Radiology 2005; 236:3-9. Colonic preparation and distention: adequate. All six segments of the colon are adequately distended on both supine and right lateral decubitus views. Colonic findings: Colon is well distended. No polyps greater than 5 mm are detected. Extracolonic findings: This CT examination is performed without intravenous contrast and with a low dose technique optimized for evaluation of the colon. Within the limits of this technique, no significant extracolonic findings are present. Gallbladder Procedure Note Ezequiel Rogers MD - 10/09/2019 EXAMINATION: CT colonography without intravenous contrast HISTORY: 59-year-old female with redundant colon presents for colon screening TECHNIQUE: Transaxial computed tomographic images through the abdomen and pelvis were obtained without intravenous contrast after insufflation of the colon with CO2 through a rectal catheter. Images were obtained in the supine and right lateral decubitus positions. COMPARISON: None FINDINGS: The following findings are reported according to the CT Colonography Reporting and Data System (C-RADS) from Radiology 2005; 236:3-9. Colonic preparation and distention: adequate. All six segments of the colon are adequately distended on both supine and right lateral decubitus views. Colonic findings: Colon is well distended. No polyps greater than 5 mm are detected. Extracolonic findings: This CT examination is performed without intravenous contrast and with a low dose technique optimized for evaluation of the colon. Within the limits of this technique, no significant extracolonic findings are present. Gallbladder IMPRESSION: C1: Normal colon or benign lesion, continue routine screening. E1: Normal exam or anatomic variant Electronically signed by: Ezequiel Rogers M.D. Blayne Umana MD IMG CT PROCEDURES Final Result from Last 3 Months or Most Recently Relevant to Health Maintenance Insurance [facility] FEDERAL Care Teams Earring Maker Relationship Specialty Start Date End Date Alyssa Loyola NP PCP - General Nurse Practitioner 09/13/17 Neha Frank DPT Physical Therapist Physical Therapy 09/13/17 Jesse Black MD [address] [place] [address] Consulting Physician Obstetrics and Gynecology 09/23/17
--- OUTSIDE RECORDS SUMMARY | 2024-10-20 14:17 | XMS_ITS | Encounter Summary ---
Author Organization [facility] Address [facility] [place] [address] Care Team Providers Care Tool Clerk Name Role Phone Marianne Rios MD Primary Care Provider [phone] Alyssa Loyola [facility] Primary Care Provider + None, Provider Primary Care Provider Danielle Blas MD Primary Care Provider [phone] Encounter Details Date Type Department Care Team (Late st Contact Info) Description 08/17/2017 Hosp Visit [facility] Outpatient [place], [place] [id number] Juani [place], [place] [address] Social History Tobacco Use Types Packs/Day Years Used Date Smoking Tobacco: Never Assessed Comments Unknown Sex and Gender Information Value Date Recorded Sex Assigned at Female 09/19/2024 3:14 PM CDT Legal Sex Female 6:08 PM CDT Gender Identity Female 09/19/2024 3:14 PM CDT Sexual Orientation Not on file documented as of this encounter Progress Notes * Juani Kerns, PT - 08/17/2017 1:27 PM CDT Mali Guerrero 1960 Patient called and cancelled today's appointment secondary to ongoing urinary tract infections. Patient states Dr. Black wants her to stretch with icing tube and hold PT. Juani Kerns, PT, WCS 08/17/17 1:27 PM documented in this encounter Plan of Treatment Upcoming Encounters Date Type Department Care Team (Late st Contact Info) Description 11/20/2024 10:00 AM CDT Office Visit [facility] Family & Internal Medicine [facility] [address] [place] [address] [place] [address] [facility]. [address] [place] [phone] documented as of this encounter Visit Diagnoses Not on filedocumented in this encounter Additional Health Concerns Infection Onset Date Last Indicated Resolved Time COVID-19 Rule Out 05/08/2022 05/08/2022 05/08/2022 9:53 AM BENCH CHEMIST documented as of this encounter Care Teams Tool Clerk Relationship Specialty Start Date End Date Marianne Rios MD [address], [place] [address] PCP - General 06/19/10 04/17/21 Alyssa Loyola, [facility]- [address] [place] [phone] PCP - General NURSE PRACTITIONER 04/18/21 05/25/22 None, Provider, PCP - General UNKNOWN PHYSICIAN SPECIALTY 05/26/22 07/02/22 [place] [address] [facility] [address] [place], [place] [id number] PCP - General FAMILY PRACTICE 07/03/22 documented as of this encounter
--- OUTSIDE RECORDS SUMMARY | 2024-10-20 14:17 | XMS_ITS | Encounter Summary ---
Author Organization [facility] Address [facility] [place] [address] Care Team Providers Care Picc Nurse Name Role Phone Marianne Rios MD Primary Care Provider [phone] Alyssa Loyola [facility] Primary Care Provider + None, Provider Primary Care Provider Danielle Blas MD Primary Care Provider [phone] Encounter Details Date Type Department Care Team (Late st Contact Info) Description 07/13/2017 Hosp Visit [facility] Outpatient Therapy [place], [place] [address] Juani [place]s, [place] [address] Social History Tobacco Use Types Packs/Day Years Used Date Smoking Tobacco: Never Assessed Comments Unknown Sex and Gender Information Value Date Recorded Sex Assigned at Female 09/19/2024 3:14 PM CDT Legal Sex Female 6:08 PM CDT Gender Identity Female 09/19/2024 3:14 PM CDT Sexual Orientation Not on file documented as of this encounter Progress Notes * Juani Kerns, PT - 07/13/2017 1:00 PM CDT Mali Fernando Yolanda 1960 Patient arrived for her appointment today and said she was started on Macrobid for a UTI last Wednesday and isn't feeling better yet. States she did pelvic floor exercises yesterday and that increased her discomfort. Patient's appointment for today was cancelled by this PT and she was instructed to contact her physician if her symptoms did not start decreasing. Juani Kerns, PT, WCS 07/13/17 1:00 PM documented in this encounter Plan of Treatment Upcoming Encounters Date Type Department Care Team (Late st Contact Info) Description 11/20/2024 10:00 AM CDT Office Visit [facility] Medical Group Family & Internal Medicine [facility] [address] [place] [address] [place] [address] [facility]. [address] [place] [phone] documented as of this encounter Visit Diagnoses Not on filedocumented in this encounter Additional Health Concerns Infection Onset Date Last Indicated Resolved Time COVID-19 Rule Out 05/08/2022 05/08/2022 05/08/2022 9:53 AM HOSPITALITY AMBASSADOR documented as of this encounter Care Teams Picc Nurse Relationship Specialty Start Date End Date Marianne Rios MD [address], [place] [address] PCP - General 06/19/10 04/17/21 Alyssa Loyola, [facility]- [address] [phone] PCP - General NURSE PRACTITIONER 04/18/21 05/25/22 None, Provider, PCP - General UNKNOWN PHYSICIAN SPECIALTY 05/26/22 07/02/22 [place] [address] [facility] [place] [address] PCP - General FAMILY PRACTICE 07/03/22 documented as of this encounter
--- OUTSIDE RECORDS SUMMARY | 2024-10-20 14:17 | XMS_ITS | Encounter Summary ---
Author Organization [facility] Address [facility] [place] [address] Care Team Providers Care Tester Equipment Name Role Phone Marianne Rios MD Primary Care Provider [phone] Alyssa Loyola [facility] Primary Care Provider + None, Provider Primary Care Provider Danielle Blas MD Primary Care Provider [phone] Encounter Details Date Type Department Care Team (Late st Contact Info) Description 07/27/2017 [facility] Outpatient Therapy [place], [place] [id number] Juani Kerns, PT [place], [place] [id number] Social History Tobacco Use Types Packs/Day Years Used Date Smoking Tobacco: Never Smokeless Tobacco: Never Alcohol Use Standard Drinks/Week Comments Never 0 (1 standard drink = 0.6 oz pur e alcohol) Comments No Sex and Gender Information Value Date Recorded Sex Assigned at Female 09/19/2024 3:14 PM CDT Legal Sex Female 6:08 PM CDT Gender Identity Female 09/19/2024 3:14 PM CDT Sexual Orientation Not on file documented as of this encounter Progress Notes * Juani Kerns, PT - 07/27/2017 12:46 PM CDT Mali Guerrero 1960 Patient called and cancelled today's appointment secondary to illness. Juani Kerns, PT, WCS 07/27/17 12:47 PM documented in this encounter Plan of Treatment Upcoming Encounters Date Type Department Care Team (Late st Contact Info) Description 11/20/2024 10:00 AM CDT Office Visit [facility] Medical Group Family & Internal Medicine - [place] [address] [place] [address] [place] [address] [facility]. [address] [place] [phone] documented as of this encounter Visit Diagnoses Not on filedocumented in this encounter Additional Health Concerns Infection Onset Date Last Indicated Resolved Time COVID-19 Rule Out 05/08/2022 05/08/2022 05/08/2022 9:53 AM GYROSCOPE REPAIRER documented as of this encounter Care Teams Tester Equipment Relationship Specialty Start Date End Date Marianne Rios MD [address], [place] [address] PCP - General 06/19/10 04/17/21 Alyssa Loyola, [facility]- [address] [place] [address] PCP - General NURSE PRACTITIONER 04/18/21 05/25/22 None, ProviderMD PCP - General UNKNOWN PHYSICIAN SPECIALTY 05/26/22 07/02/22 [place] [address] [facility] [address] [place], [place] [id number] PCP - General FAMILY PRACTICE 07/03/22 documented as of this encounter
--- OUTSIDE RECORDS SUMMARY | 2024-10-20 14:17 | XMS_ITS | Clinical Summary ---
Author Organization [facility] [employer] Address [address] [facility] [place] [address] Care Team Providers Care Mortgage Accounting Clerk Name Role Phone Harvey Kinsey VERA-TECHNOLOGY MANAGER Primary Care Provider + Source Comments [facility],non-owned Affiliates and Associated Physician Practices is amultiple site organization consisting of ambulatory clinics and hospital sitesin [place], [place], [place] and [place]. This disclosure is being madepursuant to the Care Everywhere program and may not contain all information available regarding this patient. Last updated 17.[facility] [employer] Allergies Active Allergy Reactions Criticality Noted Date Comments Sulfa Drugs 10/15/2015 HOT FLASHES AND WEAK LEG AND TURNED RED Medications * This document contains information received from the source organization and may not represent a complete record from that organization. * Be aware that medications may not be up to date on this document. Alwaysverify current medications with the patient. atorvastatin (LIPITOR) 10 MG tablet Take 10 mg by mouth once daily Active clorazepate (TRANXENE) 7.5 MG tablet 7.5 mg as directed 6 Active Cyanocobalamin (VITAMIN B 12) 100 MCG Take 100 Tabs by mouth as directed Active DULoxetine (CYMBALTA) 30 MG capsule Take 90 mg by mouth Active fenofibrate micronized (LOFIBRA) 134 MG capsule 134 mg as directed 6 Active mirtazapine (REMERON) 7.5 MG tablet 7.5 mg as directed 6 Active levothyroxine (SYNTHROID) 112 MCG tablet 112 Tabs as directed 6 Active nitrofurantoin monohyd macro crystals (MACROBID) 100 MG capsule Take 1 Cap by mouth 2 times daily 60 Cap 0 6 Active Additional Information Patient not taking.Reported on 10/25/2021 ciprofloxacin (CIPRO) 500 MG tablet Take 1 Tab by mouth 2 times daily 14 Tab 6 Active Additional Information Patient not taking.Reported on 10/25/2021 nitrofurantoin macrocrystal (MACRODANTIN) 100 MG capsule Take 1 Cap by mouth 2 times daily,before breakfast and supper 28 Cap 7 Active Additional Information Patient not taking.Reported on 10/25/2021 solifenacin (VESICARE) 10 MG tablet 1 Tab once daily 30 Tab 6 7 Active Additional Information Patient not taking.Reported on 11/16/2019 estradiol (ESTRACE VAGINAL) 0.1 MG/GM vaginal cream Insert 1 g into the vagina at bedtime 1 Tube 3 7 Active methenamine hippurate (HIPREX) 1 GM tablet Take 1 Tab by mouth 2 times daily 60 Tab 7 Active Additional Information Patient not taking.Reported on 11/16/2019 mirabegron ER 24hr (MYRBETRIQ) 50 MG tablet Take 1 Tab by mouth once daily 30 Tab 11 7 Active Additional Information Patient not taking.Reported on 11/16/2019 oxybutynin CR 24hr (DITROPAN XL) 15 MG tablet Take 1 Tab by mouth once daily 30 Tab 6 7 Active Additional Information Patient not taking.Reported on 11/16/2019 vilazodone (VIIBRYD) 40 MG tablet Take 40 mg by mouth daily with breakfast Active traZODone (DESYREL) 100 MG tabletIndication s:Anxiety Disorder,Insomni a Take 100 mg by mouth at bedtime Reasons: Anxiety Disorder, Trouble Sleeping Active dicyclomine (BENTYL) 20 MG tablet Take 1 (one) tablet by mouth 4 times daily as needed (Abdominal Cramping) 20 tablet 2 Active Active Problems Problem Noted Date Diagnosed Date Multiple benign melanocytic nevi of upper and lower extremities and trunk 11/27/2019 Seborrheic keratosis 11/27/2019 Lentigines 11/27/2019 Dermatofibroma of left lower extremity 0 Neoplasm of uncertain behavior of skin 0 Edema 11/27/2019 Herpes simplex type 2 infection 06/22/2017 Dermatochalasis of both upper eyelids 07/04/2015 Social History Tobacco Use Types Packs/Day Years Used Date Smoking Tobacco: Never Smokeless Tobacco: Never Alcohol Use Standard Drinks/Week Comments No 0 (1 standard drink = 0.6 oz pur e alcohol) Comments No Sex and Gender Information Value Date Recorded Sex Assigned at Not on file Legal Sex Female 3:00 PM CDT Gender Identity Not on file Sexual Orientation Not on file Last Filed Vital Signs Vital Sign Reading Time Taken Comments Blood Pressure 121/70 10/25/2021 8:07 AM CDT Pulse 84 10/25/2021 8:07 AM CDT Temperature 36.2 C (97.2 F) 10/25/2021 8:07 AM CDT Respiratory Rate 16 10/25/2021 8:07 AM CDT Oxygen Saturation 97% 10/25/2021 8:07 AM CDT Inhaled Oxygen Concentration - - Weight 68 kg (150 lb) 10/25/2021 8:07 AM CDT Height 167.6 cm (5' 6) 10/25/2021 8:07 AM CDT Body Mass Index 24.21 10/25/2021 8:07 AM CDT Plan of Treatment Health Maintenance Due Date Last Done Comments BONE DENSITY TESTING 1960 COLOGUARD (AGES 45-75) - COLON CA SCREENING 1960 COLON MONITORING 1959 COLONOSCOPY - COLON CA SCREENING 1959 CT COLONOGRAPHY - COLON CA SCREENING 1960 Colorectal Cancer Screening 1960 FIT - COLON CA SCREENING 1959 FLEX SIG - COLON CA SCREENING 1960 MAMMOGRAM 1960 HIV SCREENING 09/11/1974 HEPATITIS C SCREENING 09/07/1977 DTAP/TDAP/TD VACCINES (1 - Tdap) 09/11/1978 PNEUMOCOCCAL VACCINE 50+ (1 of 1 - PCV) 09/11/2009 ZOSTER VACCINE (1 of 2) 09/11/2009 COVID-19 VACCINE ( season) 2023 02/27/2021, 07/08/2020, 06/17/2020 DEPRESSION SCREENING 04/12/2024 INFLUENZA VACCINE (Season Ended) 2024 12/18/2021, 02/14/2021, 12/29/2019, Additional history exists Respiratory Syncytial Virus (RSV) Vaccine Pt: or over 60 yrs (1 - 1-dose 75+ series) 09/11/2034 HEPATITIS B VACCINE Aged Out No longe r eligible based on patient's age to complete this topic HIB VACCINE Aged Out No longer eligi ble based on patient's age to complete this topic HPV VACCINE Aged Out No longer eligi ble based on patient's age to complete this topic MENINGOCOCCAL (Group B) VACCINE SHARED DECISION-MAKING Aged Out No longer eligible based on patient's age to complete this topic MENINGOCOCCAL GROUPS A/C/Y/W VACCINE Aged Out No longer eligible based on patient's age to complete this topic Insurance [facility] Care Teams Mortgage Accounting Clerk Relationship Specialty Start Date End Date Kinsey Gabriel APRN-ODESSA [address] [phone] PCP - General Nurse Practitioner 10/11/15
--- OUTSIDE RECORDS SUMMARY | 2024-10-20 14:17 | XMS_ITS | Clinical Summary ---
Author Organization [facility] Address [address] [place] [address] Care Team Providers Care Pony Rougher Name Role Phone Nir Alyssa Judith REGULATORY CONSULTANT Primary Care Provider + Neha Frank DPT Unavailab le Jesse Black MD Unavailable [phone] Allergies Active Allergy Reactions Criticality Noted Date [...] (CYMBALTA) 30 mg capsule 05/01/2020 Active omega 0-pnz-fve-fish oil 1,000 mg (250 mg-750 mg)/5 mL liquid 1 tablet 10/07/2014 Act rashad vitamin H82-tcnns acid 0.5-1 mg tablet 1 tablet 10/07/2014 [...] -continue twice weekly VET (prescribed by local COLOR TESTER) Bilateral hip pain 04/21/2017 Arthralgia of hip [...] (12+ Yrs) PURPLE 02/27/2021,07/08/2020,06/17/2020 Tdap 01/27/2018, 8,01/23/2018,04/12 Surgical History Surgery Date Site/Laterality Comments VA TONSILLECTOMY PRIMARY/SEC ONDARY <AGE 12 Tonsillectomy - (Added by TW Conv) SINUS SURGERY Sinus Surgery - (Added by TW Conv) [facility] ABDOMINO-VAG VESICAL NCK SSP W/WO NDSC CTRL Abdomino-Vaginal Vesical Neck Suspension - (Added by TW Conv) VA TOTAL ABDOMINAL HYSTERECT W/WO RMVL TUBE OVARY Hysterectomy - (Added by TW Conv) GALLBLADDER SURGERY Gallbladder Surgery - (Added by TW Conv) HYSTERECTOMY Medical History Medical History Date Comments Personal history of other di seases of the musculoskeletal system and connective tissue History of back pain - (Adde d by TW Conv) Long QT syndrome Long QT syndrom e - (Added by TW Conv) Pain in extremity Limb pain - (A dded by TW Conv) Personal history of other sp ecified conditions History of chest pain - (Add ed by TW Conv) Personal history of other en docrine, nutritional and metabolic disease History of hyperchol esterolemia - (Added by TW Conv) Other specified postprocedural states History of back surgery - (Added by TW Conv) Personal history of other en docrine, nutritional and metabolic disease History of hypothyro idism - (Added by TW Conv) Personal history of other sp ecified conditions History of weight loss - (Ad ded by TW Conv) Personal history of other sp ecified conditions History of fatigue - (Added by TW Conv) Personal history of other sp ecified conditions History of insomnia - (Added by TW Conv) Personal history of other di seases of the digestive system History of constipation - (A dded by TW Conv) Intra-abdominal and pelvic s welling, mass and lump, unspecified site Pelvic mass in female - (Added by TW Conv) Myalgia Bilateral myofas cial pain - (Added by TW Conv) Hypothyroidism Urinary tract infection Anemia Anxiety Depression Family History Medical History Relation Name Comments Cancer Brother Prostate cancer Brother Family histo ry of malignant neoplasm of prostate - (Added by TW Conv) No Known Problems Father Diabetes Maternal Grandmother No Known Problems Mother Diabetes Other Diabetes Mellit us - grandparent (Added by TW Conv) Relation Name Status Comments Brother Father Maternal Grandmother Mother Other Social History Tobacco Use Types Packs/Day Years [...] on file Legal Sex Female 7:36 AM LOG DATA TECHNICIAN Gender Identity Not on file Sexual Orientation Not on file Occupation Industry Job Start Date Job End Date Retired Not on file Not on file Not on file Obstetrics History Para Term AB IAB SAB Ectopic Multiple Livin g Live Births 2 2 2 2 2 Date Outcome GA Total Labor Labor/2nd/3rd Weight Sex Type Anes PTL Sridevi A1 A5 Name Clin Term Vag-S pont Living Term Vag-S pont Living Last Filed Vital Signs Vital Sign Reading Time Taken Comments Blood Pressure 112/67 03/13/2024 8:42 AM LOG DATA TECHNICIAN Pulse 97 06/19/2021 11:19 AM LOG DATA TECHNICIAN Temperature 36.5 C (97.7 F) 06/19/2020 12:50 PM LOG DATA TECHNICIAN Respiratory Rate - - Oxygen Saturation 99% 01/18/2017 1:46 PM CDT Inhaled Oxygen Concentration - - Weight 71.2 kg (157 lb) 03/13/2024 8:42 AM LOG DATA TECHNICIAN Height 167.6 cm (5' 6) 03/13/2024 8:42 AM LOG DATA TECHNICIAN Body Mass Index 25.34 03/13/2024 8:42 AM LOG DATA TECHNICIAN Plan of Treatment Health Maintenance Due Date Last Done Comments Breast Cancer Screening-Mammogram 1960 Depression Screening 1960 Fall Risk Assessment 1960 Hepatitis C Screening 1960 Osteoporosis Screening-Bone Density Scan 1960 Hepatitis B Screening 09/11/1977 Pneumococcal vaccine 65+ (1 of 1 - PCV) 09/11/2009 Covid-19 Vaccine (4 - 2023-2 5 season) 2023 02/27/2021, 07/08/2020, 06/17/2020 Well Visit 65+ 09/11/2024 Influenza Vaccine (Season Ended) 2024 12/18/2021, 02/14/2021, 12/29/2019, Additional history exists DTaP/Tdap/Td Vaccine (5 - Td or Tdap) 01/28/2028 01/27/2018, 01/24/2018, 01/23/2018, Additional history exists Colon Cancer Screening-Colonoscopy 10/08/2029 10/09/2019, 11/03/2013 Colon Cancer Screening-CT Colonography Discontinued 10/09/2019, 11/03/2013 Colon Cancer Screening-DNA Stool Discontinued 10/09/19 20, 11/03/2013 Colon Cancer Screening-FIT Discontinued 10/09/2019, Colon Cancer Screening-Sigmoidoscopy Discontinued 10/09/2019, 11/03/2013 Zoster Vaccine Completed 03/12/2022, 11/13/2021 Procedures Procedure Name Priority Date/Time Associated Diagnosis [...] by: Ezequiel Rogers M.D. Blayne Umana MD IM CT PROCEDURES Final Result from Last 3 Months or Most Recently Relevant to Health Maintenance Insurance [facility] Care Teams Pony Rougher Relationship Specialty Start Date End Date Alyssa Loyola NP PCP - General Nurse Practitioner 09/13/17 Neha Frank DPT Physical Therapist Physical Therapy 09/13/17 Jesse Black MD [address] [place] [address] Consulting Physician Obstetrics and Gynecology 09/23/17
--- OUTSIDE RECORDS SUMMARY | 2024-10-20 14:17 | XMS_ITS | Clinical Summary ---
Author Organization [facility] Address [address] [place] [address] Care Team Providers Care Cartoonist Special Effects Name Role Phone Marianne Rios MD Primary Care Provider [phone] Allergies Active Allergy Reactions Criticality Noted Date Comments Sulfa (Sulfonamide Antibiotics) Weakness Medium 06/2008 Medications AMITRIPTYLINE 50 mg Oral Tab Take 100 mg by mouth daily. 1 Active SYNTHROID 50 mcg Oral Tab Take 50 mcg by mouth daily. 5 Active VITAMIN D PO Take by mouth. 8 Active pregabalin (LYRICA) 75 mg Oral CapIndications:Occi pital neuralgia,Degenerat ion of cervical intervertebral disc,Intractable chronic migraine without aura Take 1 Cap by mouth 2 times daily. 60 Cap 2 9 Active duloxetine (CYMBALTA) 30 mg Oral CpDRIndications:Int ractable chronic migraine without aura,Occipital neuralgia,Depressio n,Degeneration of cervical intervertebral disc Take 3 Caps by mouth daily. 90 Cap 6 9 Active Active Problems Problem Noted Date Diagnosed Date Unspecified sinusitis (chronic) 06/13/2008 Unspecified hypothyroidism 06/13/2008 Intractable chronic migraine without aura 2008 Occipital neuralgia 06/12/2008 Depression 06/12/2008 Degeneration of cervical intervertebral disc 06/2008 Family History Medical History Relation Name Comments Diabetes Other grandparent Relation Name Status Comments Other grandparent Social History Tobacco Use Types Packs/Day Years Used Date Smoking Tobacco: Never Alcohol Use Standard Drinks/Week Comments No 0 (1 standard drink = 0.6 oz pur e alcohol) Comments No Sex and Gender Information Value Date Recorded Sex Assigned at Not on file Legal Sex Female 5:41 AM DIRECTOR OF SEARCH ENGINE OPTIMIZATION Gender Identity Not on file Sexual Orientation Not on file Last Filed Vital Signs Vital Sign Reading Time Taken Comments Blood Pressure 120/80 11/09/2008 11:12 AM CDT Pulse 62 11/09/2008 11:12 AM CDT Temperature - - Respiratory Rate - - Oxygen Saturation - - Inhaled Oxygen Concentration - - Weight 73 kg (161 lb) 11/09/2008 11:12 AM CDT Height 167.6 cm (5' 6) 11/09/2008 11:12 AM CDT Body Mass Index 25.99 11/09/2008 11:12 AM CDT Plan of Treatment Health Maintenance Due Date Last Done Comments DTAP/TDAP/TD VACCINES (1 - Tdap) 09/11/1978 BREAST CANCER SCREENING 1999 COLORECTAL SCREENING 09/11/2004 Colorectal Cancer Screening 09/11/2004 FIT-DNA Q 3 years 09/11/2004 FIT/FOBT Q 1 year 09/11/2004 Flex Sig/CT Colonography Q 5 years 09/11/2004 PNEUMOCOCCAL VACCINE 50+ YEARS (1 of 1 - PCV) 09/12/19 10 ZOSTER VACCINE (1 of 2) 09/11/2009 OSTEOPOROSIS SCREENING 09/11/2024 INFLUENZA VACCINE (#1) 2024 RSV VACCINE (60+ or ) (1 - 1-dose 75+ series) 09/11/2034 Insurance [employer] CHOICE POS II Advance Directives For more information, please contact: [phone] Documents on File Type Date Recorded Patient Medical Claims Specialist Expl anation Advance Directive POA 06/12/2008 Care Teams Cartoonist Special Effects Relationship Specialty Start Date End Date Marianne Rios MD [address] [address] PCP - General 03/29/15
== END 2024-10-20 14:13 | disposition home or self-care (01) ==
LOC: ANHIMG 14:15
PROVIDERS: PCP Family Medicine; Visit Provider Obstetrics & Gynecology
DX: Z78.0 Asymptomatic menopausal state (principal)
CPT/HCPCS: 77080